=== PATIENT | female | born 1965 | race Caucasian/White ===

== ENCOUNTER 2020-04-10 08:00 | Emergency (ER) | payer SELFPAY ==
[2020-04-10] MEDS ORDERED: SULFA/TRIMETH 800/160 (DS) TAB 1 EA TAB PO ONE (08:16)
[2020-04-10] MEDS ORDERED: predniSONE 20 MG TAB PO ONE (08:16)
[2020-04-10 08:19] VITALS: TEMP 98; O2SAT 98
--- NOTE | 2020-04-10 08:19 | ED.PDOC ---
History of Present Illness - General Chief Complaint: General Stated Complaint: Right ankle pain Time Seen by Provider: 04/10/20 08:05 Source: patient Exam Limitations: no limitations - History of Present Illness Initial Comments: The patient is a 54-year-old female presented emergency room secondary to right anterior lateral superficial ankle pain. Her description is more the description of a neuropathic type pain. The patient does have multiple fire ant stings in the area and some associated swelling. It is difficult to tell if there is superimposed infection due to the swelling caused by the stings naturally. No real extending erythema. No fever. No obvious abscess to drain. Normal range of motion of the ankle. No bony tenderness. Timing/Duration: 24 hours Severity: moderate Improving Factors: nothing Worsening Factors: nothing Associated Symptoms: denies symptoms Allergies/Adverse Reactions: Allergies NO KNOWN ALLERGY Allergy (Verified 04/10/20 08:19) Home Medications: Ambulatory Orders Sulfa/Trimeth 800/160 (Ds) Tab [Bactrim DS Tab] 1 ea PO BID #6 tab 04/10/20 Review of Systems - Review of Systems Constitutional: States: no symptoms reported EENTM: States: no symptoms reported Respiratory: States: no symptoms reported Cardiology: States: no symptoms reported Gastrointestinal/Abdominal: States: no symptoms reported Genitourinary: States: no symptoms reported Musculoskeletal: States: no symptoms reported Skin: States: see HPI Neurological: States: no symptoms reported Endocrine: States: no symptoms reported All other Systems: No Change from Baseline Physical Exam - Physical Exam General Appearance: Alert, Comfortable, No apparent distress Eye Exam: bilateral normal Ears, Nose, Throat: hearing grossly normal Neck: full range of motion Respiratory: no respiratory distress, no accessory muscle use Cardiovascular/Chest: normal peripheral pulses, no edema Peripheral Pulses: dorsalis pedis,right: 2+, dorsalis pedis,left: 2+ Rectal Exam: deferred Extremity: normal range of motion, no calf tenderness, normal capillary refill Neurologic: mft II-XII nml as tested, alert, normal mood/affect, oriented x 3 Skin Exam: other - See history of present illness Progress - Progress Progress: 04/10/20 08:18 The patient is a 54-year-old female presented emergency room secondary to right ankle pain that appears to be due to multiple fire ant stings. The patient is given a dose of prednisone here. There is a possibility of secondary infection with these bites and the patient will be placed on Bactrim for the next 3 days. ER warnings are given for any worsening. Keep routine follow-up with primary care doctor. travon sarabia [id number] Departure - Departure Clinical Impression: Fire ant bite Qualifiers: Encounter type: initial encounter Injury intent: accidental or unintentional Qualified Code(s): T63.421A - Toxic effect of venom of ants, accidental (unintentional), initial encounter Disposition: Discharge to Home or Self Care Condition: Fair Departure Forms: ED Discharge - Pt. Copy, Patient Portal Self Enrollment Diet: regular diet Activity: increase activity as tolerated Prescriptions: Sulfa/Trimeth 800/160 (Ds) Tab [Bactrim DS Tab] 1 ea PO BID #6 tab Home Medications: Ambulatory Orders Sulfa/Trimeth 800/160 (Ds) Tab [Bactrim DS Tab] 1 ea PO BID #6 tab 04/10/20 Additional Instructions: The patient is a 54-year-old female presented emergency room secondary to right ankle pain that appears to be due to multiple fire ant stings. The patient is given a dose of prednisone here. There is a possibility of secondary infection with these bites and the patient will be placed on Bactrim for the next 3 days. ER warnings are given for any worsening. Keep routine follow-up with primary care doctor.
[2020-04-10 08:40] VITALS: BP 122/81
== END 2020-04-10 08:39 | disposition home or self-care (01) ==
LOC: ER 08:00
DX: T63.421A Toxic effect of venom of ants, accidental (unintentional), initial encounter (principal); Y92.9 Unspecified place or not applicable